=== PATIENT | male | born 1945 | race Caucasian/White ===

== ENCOUNTER → 2024-01-29 07:31 | Outpatient (REF) | payer MEDICARE, SELFPAY ==
[2024-01-29 10:36] LABS: ALT (SGPT) 24 U/L (0-50); AST (SGOT) 28 U/L (17-59); Alkaline Phosphatase 37 U/L (38-126); Blood Urea Nitrogen 22 mg/dl (9-20); Calcium 8.9 mg/dl (8.4-10.2); Carbon Dioxide 31 mmol/L (22-30); Chloride 105 mmol/L (98-107); Glucose 96 mg/dl (70-99); HDL Cholesterol 48 mg/dl; LDL Cholesterol, Calculated 60 mg/dl; Potassium 4.6 mmol/L (3.5-5.1); Sodium 141 mmol/L (135-145); Total Bilirubin 0.8 mg/dl (0.2-1.3); Total Cholesterol 120 mg/dl (50-199); Total Protein 6.6 g/dl (6.3-8.2); Triglyceride 64 mg/dl (10-149); Very Low Density Lipoprotein 12 mg/dl (0-30); eGFR > 60.00
[2024-01-29 11:15] LABS: Glycohemoglobin (HgbA1c) 5.7 % (4.0-5.6)
== END ==
LOC: HWLAB 07:31
PROVIDERS: ATTENDING PHYSICIAN Internal Medicine
DX: E78.5 Hyperlipidemia, unspecified (principal); R73.01 Impaired fasting glucose
CPT/HCPCS: 36415; 80053; 80061; 83036

== ENCOUNTER → 2024-02-03 08:10 | Outpatient (REF) | payer MEDICARE, SELFPAY ==
[2024-02-03 09:55] LABS: % Basophils 0.7 % (0-2); % Eosinophils 2.8 % (0-6); % Immature Granulocytes 0.2 % (0-0.5); % Lymphocytes 21.7 % (20.5-51.1); % Monocytes 9.6 % (1.7-9.3); Absolute Basophils 0.1 10^3/uL (0-0.2); Absolute Eosinophils 0.2 10^3/uL (0-0.7); Absolute Lymphocytes 1.8 10^3/uL (1.2-3.4); Absolute Monocytes 0.8 10^3/uL (0.1-0.6); Absolute Neutrophils 5.3 10^3/uL (1.4-6.5); Hematocrit 45.9 % (39.0-52.0); Hemoglobin 15.3 g/dL (13.0-18.0); Mean Corp Hgb Conc. 33.3 g/dL (33.0-37.0); Mean Corpuscular Volume 99.1 fL (80.0-94.0); Mean Platelet Volume 11.1 fL (7.4-10.4); Nucleated Red Blood Cells % 0 % (-); Platelet Count 223 10^3/uL (130-400); Red Blood Cell Count 4.63 10^6/uL (4.70-6.10); Red Cell Dist. Width 12.4 % (11.5-14.5); White Blood Cell Count 8.1 10^3/uL (4.8-10.8)
== END ==
LOC: HWLAB 08:10
PROVIDERS: ATTENDING PHYSICIAN Internal Medicine
DX: R19.5 Other fecal abnormalities (principal)
CPT/HCPCS: 36415; 85025

== ENCOUNTER → 2024-05-21 10:51 | Outpatient (REF) | payer MEDICARE, SELFPAY | LOC: HWRAD 10:51 | PROVIDERS: ATTENDING PHYSICIAN Nurse Practitioner Family; FAMILY PHYSICIAN Internal Medicine | DX: R05.9 Cough, unspecified (principal) | CPT/HCPCS: 71046 ==

== ENCOUNTER → 2024-05-27 12:01 | Outpatient (REF) | payer MEDICARE, SELFPAY ==
[2024-05-27 15:39] LABS: % Basophils 0.3 % (0-2); % Eosinophils 0.8 % (0-6); % Immature Granulocytes 0.2 % (0-0.5); % Lymphocytes 17.1 % (20.5-51.1); % Monocytes 8.4 % (1.7-9.3); % Neutrophils 73.2 % (42.2-75.2); Absolute Eosinophils 0.1 10^3/uL (0-0.7); Absolute Lymphocytes 1.5 10^3/uL (1.2-3.4); Absolute Monocytes 0.8 10^3/uL (0.1-0.6); Absolute Neutrophils 6.5 10^3/uL (1.4-6.5); Hematocrit 43.6 % (39.0-52.0); Hemoglobin 14.8 g/dL (13.0-18.0); Mean Corp Hgb Conc. 33.9 g/dL (33.0-37.0); Mean Corpuscular Hgb 32.5 pg (27.0-31.0); Mean Corpuscular Volume 95.6 fL (80.0-94.0); Mean Platelet Volume 10.7 fL (7.4-10.4); Nucleated Red Blood Cells % 0 % (-); Platelet Count 233 10^3/uL (130-400); Red Blood Cell Count 4.56 10^6/uL (4.70-6.10); White Blood Cell Count 8.9 10^3/uL (4.8-10.8)
[2024-05-27 15:52] LABS: ALT (SGPT) 28 U/L (0-50); AST (SGOT) 29 U/L (17-59); Albumin 4.3 g/dl (3.5-5.0); Alkaline Phosphatase 51 U/L (38-126); Blood Urea Nitrogen 13 mg/dl (9-20); Carbon Dioxide 28 mmol/L (22-30); Chloride 102 mmol/L (98-107); Glucose 99 mg/dl (70-99); Potassium 4.7 mmol/L (3.5-5.1); Sodium 138 mmol/L (135-145); Total Protein 6.9 g/dl (6.3-8.2); eGFR > 60.00
== END ==
LOC: HWRAD 12:01
PROVIDERS: ATTENDING PHYSICIAN Internal Medicine
DX: R10.31 Right lower quadrant pain (principal)
CPT/HCPCS: 36415; 73502; 74018; 80053; 85025

== ENCOUNTER 2024-08-14 14:31 | Emergency (ER) | payer MEDICARE, SELFPAY ==
[2024-08-14 14:41] VITALS: BP 154/63
[2024-08-14 15:06] LABS: % Basophils 0.6 % (0-2); % Eosinophils 2.2 % (0-6); % Immature Granulocytes 0.3 % (0-0.5); % Lymphocytes 19.7 % (20.5-51.1); % Monocytes 10.4 % (1.7-9.3); % Neutrophils 66.8 % (42.2-75.2); Absolute Basophils 0.1 10^3/uL (0-0.2); Absolute Eosinophils 0.2 10^3/uL (0-0.7); Absolute Lymphocytes 1.8 10^3/uL (1.2-3.4); Absolute Neutrophils 6.2 10^3/uL (1.4-6.5); Hematocrit 39.7 % (39.0-52.0); Hemoglobin 13.9 g/dL (13.0-18.0); Mean Corpuscular Hgb 33.1 pg (27.0-31.0); Mean Corpuscular Volume 94.5 fL (80.0-94.0); Mean Platelet Volume 10.6 fL (7.4-10.4); Nucleated Red Blood Cells % 0 % (-); Platelet Count 218 10^3/uL (130-400); Red Cell Dist. Width 12.3 % (11.5-14.5); White Blood Cell Count 9.3 10^3/uL (4.8-10.8)
[2024-08-14 15:16] LABS: ALT (SGPT) 15 U/L (0-50); AST (SGOT) 21 U/L (17-59); Albumin 3.9 g/dl (3.5-5.0); Alkaline Phosphatase 34 U/L (38-126); Blood Urea Nitrogen 18 mg/dl (9-20); Calcium 8.6 mg/dl (8.4-10.2); Carbon Dioxide 25 mmol/L (22-30); Chloride 108 mmol/L (98-107); Glucose 104 mg/dl (70-99); Potassium 4.4 mmol/L (3.5-5.1); Sodium 139 mmol/L (135-145); Total Bilirubin 0.8 mg/dl (0.2-1.3); Total Protein 6.5 g/dl (6.3-8.2); eGFR > 60.00
[2024-08-14 16:19] VITALS: BMI 24.7
--- NOTE | 2024-08-14 16:21 | EDRN ---
Addendum entered by Noemi Barragan RN 08/14/24 16:24:
Pain is mostly in pelvic area/ R groin.
Original Note:
Pt states he was working in garage w/R prothesis in place (thigh high prosthesis). Area was swollen and get excruciating pain when he moves R upper leg stump. Pt was fearing appendicitis. Pt states this happened before belinda 4-5 days ago where same
spot was swollen. Pt states if continues to walk with it gets very painful.
[2024-08-14 16:26] VITALS: BP 138/79
--- NOTE | 2024-08-14 17:43 | EDRN ---
Dr. Freed in room w/pt.
--- NOTE | 2024-08-14 17:45 | ED.GENMED ---
History of Present Illness
General
Chief Complaint: Abdominal Pain
Source: patient and spouse
Exam Limitations: none
Time Seen by Provider: 08/14/24 17:34
Nursing documentation reviewed up to this point in time: agreed with
History of Present Illness
History of Present Illness:
78-year-old male with history as noted presents to the ER for evaluation of right groin pain. Patient reports that about a week ago he noticed a bump in his right groin that was painful. He says he laid down and put an ice pack on it for 10
minutes and it went away. He says that he thought it might have been from his prosthetic leg irritating the skin in his groin. He says that the painful bump returns today and was not going away which prompted him to come to the emergency room. He
says since arrival here it seems to have gone away and he is now asymptomatic. He denies any skin changes. He denies any fevers or chills. He denies any other acute complaints.
Review of Systems
Review of Systems
All Other Systems: ROS reviewed and negative except as documented in HPI and ROS
Constitutional: Denies fever or chills
ABD/GI: Denies abdominal pain, nausea, vomiting or constipated
: Denies dysuria or flank pain
Musculoskeletal: Reports other (Groin pain)
Phy Exam
Physical Exam
Physical Exam:
General: Awake, alert; no acute distress
Head: Normocephalic, atraumatic
Eyes: Conjunctiva normal
Throat: Airway intact, handling secretions
Neck: Trachea midline
Lungs: Breathing comfortably no distress
Heart: Regular rate
Abd: Soft, non distended, nontender
Groin: Patient has palpable femoral pulse but no pulsatile mass; no palpable defect or hernia in the area of concern�area of concern is approximately 3 cm medial and 2 cm superior to location of his femoral artery by palpation; no skin changes�no
erythema or bruising
Neuro: No gross deficit
Extremities: Right AKA
Scores
Heart Failure Risk
Heart Failure Risk Score: Not Applicable
Heart Score for Chest Pain Patients
STEMI patient?: Not applicable
Withdrawal Assessment of Alcohol
Withdrawal Assessment Completed?: Not applicable
Course
Orders/Labs/Results
Orders:
Orders
08/14/24 14:47
Complete Blood Count/With Diff Urgent
Comprehensive Metabolic Panel Urgent
08/14/24 17:45
US Groin (Imaging Only) RT Urgent
Comment:
Reason For Exam: R groin pain, swelling
Abnormal Lab Results
08/14/24
14:47
RBC 4.20 L 10^6/uL
(4.70-6.10)
MCV 94.5 H fL
(80.0-94.0)
MCH 33.1 H pg
(27.0-31.0)
MPV 10.6 H fL
(7.4-10.4)
Absolute Monos (auto) 1.0 H 10^3/uL
(0.1-0.6)
Lymphocytes % 19.7 L %
(20.5-51.1)
Monocytes % 10.4 H %
(1.7-9.3)
Chloride 108 H mmol/L
(98-107)
Glucose 104 H mg/dl
(70-99)
Alkaline Phosphatase 34 L U/L
(38-126)
08/14/24 14:47
08/14/24 14:47
Vital Signs
Initial and Last Documented VS:
Initial Vital Signs
Temp Pulse Resp BP Pulse Ox
36.8 C 77 16 154/63 95
08/14/24 14:41 08/14/24 14:41 08/14/24 14:41 08/14/24 14:41 08/14/24 14:41
Last Documented Vital Signs
Temp Pulse Resp BP Pulse Ox
36.8 C 69 16 138/79 98
08/14/24 14:41 08/14/24 16:26 08/14/24 16:26 08/14/24 16:26 08/14/24 16:26
MDM/Problems Addressed
Differential Diagnosis Includes:
Inguinal hernia, groin strain, aneurysm/pseudoaneurysm, kidney stone
MDM/Problems Addressed:
78-year-old male presents for evaluation of painful bump in the right groin intermittent�had an episode last week and then another episode today that has resolved. Vitals and exam as above. Suspect that this is likely an inguinal hernia. Hernia
is not currently palpable on exam. Will check an ultrasound of the area. He did have lab work sent in triage which showed no clinically significant abnormalities.
*Radiology
Radiology exam reviewed: radiology read reviewed
*Pulse Oximetry
SaO2: 98
Oxygen Mode of Delivery: Room air
Patient hypoxic: no (98%)
*Critical Care Note
Total Time (30-74mins, 75-104mins- exclusive of procedures): Not Applicable
Data Reviewed
Review of Other/Old Records Reveals: Labs and Records
Source: patient and spouse
ED Attending Note
-
Portions of this chart may have been created with voice recognition software.� Occasional wrong word or��sound alike� substitutions may have occurred due to the inherent limitations of voice recognition software.
Discharge Plan
Departure
Prescriptions:
No Action
Vitamin C:
1 gum PO DAILY
oxycodone 5 MG tablet
5 mg PO Q6HPRN PRN (Reason: moderate-severe pain) Qty: 30 0RF
Rx Instructions:
1 tab moderate pain or 2 if pain severe
Dx total joint replacement
ongoing therapy
ondansetron HCl 4 MG tablet
4 mg PO Q6HPRN PRN (Reason: nausea) Qty: 20 0RF
Rx Instructions:
Take 1/2 hour prior to Oxycodone if experiencing recurrent nausea
celecoxib 200 MG capsule
200 mg PO DAILY Qty: 30 0RF
Rx Instructions:
Take with food.
Do not take within 2 hours of Aspirin post-op.
famotidine 20 MG tablet
20 mg PO HS Qty: 30 0RF
Rx Instructions:
Take nightly while on Celebrex.
mupirocin 1 APPLIC ointment
1 applic intranasal BID Qty: 1 0RF
Patient Comments:
x 3 days. last dose 5/ pm
aspirin 325 MG tablet
325 mg PO DAILY Qty: 28 0RF
Rx Instructions:
Take daily x4 weeks for blood clot prevention; then resume Aspirin 81 mg daily.
docusate sodium 100 MG capsule
100 mg PO BID Qty: 30 0RF
sennosides [senna] 8.6 MG tablet
8.6 mg PO BID Qty: 30 0RF
acetaminophen [Tylenol Extra Strength] 500 MG tablet
1,000 mg PO Q6H Qty: 60 0RF
Rx Instructions:
Do not exceed >4000 mg daily.
ezetimibe 10 MG tablet
10 mg PO DAILY
atorvastatin 40 MG tablet
40 mg PO HS Qty: 0 0RF
metronidazole 60 GM gel
60 gm topical HS
Referrals:
Lilo Fry MD [Family Provider, Internal Medicine]
Interventions
Interventions:
*Risk Screen - Suicide Last Done: 08/14/24 14:41
*General Assessment Last Done: 08/14/24 16:19
*Neglect/Abuse Screening Last Done: 08/14/24 14:41
*ED- Fall Risk Assessment Last Done: 08/14/24 16:19
*ED COVID-19 Vaccine History Last Done: 08/14/24 16:19
GM-Gwepjp-Hcssldepic Assessment Last Done: 08/14/24 16:28
Discharge Date and Time
Print Language: SUDANESE
[2024-08-14 17:51] VITALS: BP 156/62
--- NOTE | 2024-08-14 17:58 | EDRN ---
[place] at [place].
--- NOTE | 2024-08-14 18:29 | EDRN ---
Dr. Freed in room w/pt
[2024-08-14 19:10] VITALS: BP 149/65
== END 2024-08-14 19:28 | disposition home or self-care (01) ==
LOC: EMR 14:31
PROVIDERS: Emergency Medicine; EMERGENCY PHYSICIAN Emergency Medicine; FAMILY PHYSICIAN Internal Medicine
DX: R10.31 Right lower quadrant pain (principal); R22.2 Localized swelling, mass and lump, trunk; E78.5 Hyperlipidemia, unspecified; M19.90 Unspecified osteoarthritis, unspecified site; Z79.82 Long term (current) use of aspirin; Z87.891 Personal history of nicotine dependence; Z89.611 Acquired absence of right leg above knee
CPT/HCPCS: 99284; 76882; 80053; 85025

== ENCOUNTER → 2024-09-09 13:22 | Outpatient (REF) | payer MEDICARE, SELFPAY | LOC: RAD 13:22 | PROVIDERS: ATTENDING PHYSICIAN Surgery; FAMILY PHYSICIAN Internal Medicine | DX: K40.90 Unilateral inguinal hernia, without obstruction or gangrene, not specified as recurrent (principal) | CPT/HCPCS: 74177; Q9967 ==

== ENCOUNTER → 2024-09-15 06:34 | Outpatient (REF) | payer MEDICARE, SELFPAY ==
[2024-09-15 08:56] LABS: Hematocrit 42.6 % (39.0-52.0); Hemoglobin 14.8 g/dL (13.0-18.0); Mean Corp Hgb Conc. 34.7 g/dL (33.0-37.0); Mean Corpuscular Volume 94.9 fL (80.0-94.0); Platelet Count 214 10^3/uL (130-400); Red Cell Dist. Width 12.2 % (11.5-14.5)
[2024-09-15 09:53] LABS: Blood Urea Nitrogen 13 mg/dl (9-20); Calcium 9.0 mg/dl (8.4-10.2); Carbon Dioxide 26 mmol/L (22-30); Chloride 107 mmol/L (98-107); Glucose 89 mg/dl (70-99); Potassium 4.8 mmol/L (3.5-5.1); Sodium 138 mmol/L (135-145); eGFR > 60.00
== END ==
LOC: SDSPAT 06:34
PROVIDERS: ATTENDING PHYSICIAN Surgery; FAMILY PHYSICIAN Internal Medicine
DX: Z01.818 Encounter for other preprocedural examination (principal)
CPT/HCPCS: 36415; 80048; 85027; 93005

== ENCOUNTER 2024-09-29 08:16 | Day surgery (SDC) | payer MEDICARE, SELFPAY ==
[2024-09-29] VITALS (7 sets, daily range): BP systolic 121–155; BP diastolic 58–79; BMI 24.5
[2024-09-29] MEDS: TYLENOL 1000 MG PO (08:42)
[2024-09-29] MEDS: NORMOSOL-R/PLASMALYTE-A 1000 IV (08:42)
== END 2024-09-29 12:00 | disposition home or self-care (01) ==
LOC: SDS 08:16
PROVIDERS: ATTENDING PHYSICIAN Surgery; FAMILY PHYSICIAN Internal Medicine
DX: K40.90 Unilateral inguinal hernia, without obstruction or gangrene, not specified as recurrent (principal); D17.6 Benign lipomatous neoplasm of spermatic cord; Z86.79 Personal history of other diseases of the circulatory system; Z89.611 Acquired absence of right leg above knee
CPT/HCPCS: 49505; C1781